=== PATIENT | female | born 1965 | race Caucasian/White ===

== ENCOUNTER 2016-10-15 17:47 | Emergency (ER) | payer OTHER ==
--- NOTE | 2016-10-15 20:25 | DIAGNOSTIC IMAGING REPORT ---
PROCEDURE: CT ABDOMEN/PELVIS W/O CONTRAST INDICATION: ABDOMINAL PAIN, bilateral flank pain, history of polycystic kidney disease TECHNIQUE: Axial CT images were obtained through the abdomen and pelvis without IV contrast. Coronal and sagittal reformations were created. COMPARISON: 12/10/2012 FINDINGS: Diffuse enlargement of both kidneys with innumerable bilateral cysts. The right kidney measures approximately 16.8 cm and the left kidney measures approximately 17.7 cm. These are relatively stable compared to the prior study. Multiple nonobstructing bilateral intrarenal calculi are present. Multiple hepatic cysts. Questionable subtle inflammation around the margin of the pancreas which remains normal in size and stable compared to the prior study. The pancreatic duct is visible but nondilated. Clear lung bases. Normal sized heart. No hiatal hernia. The unenhanced appearance of the gallbladder, adrenal glands, and spleen is normal. The abdominal aorta is normal in its course and caliber with minor atherosclerosis. There are no suspicious calcifications, retroperitoneal adenopathy or masses. The stomach, upper bowel loops, and mesentery are normal. Intact anterior abdominal wall. No free fluid or inflammation. Post hysterectomy. Mild sigmoid diverticulosis. The unenhanced appearance of the urinary bladder, pelvic vessels, and pelvic bowel loops is normal. Normal appendix. No suspicious calcifications, free pelvic fluid or mass. Intact osseous structures. IMPRESSION: 1. Stable bilateral polycystic kidney disease with bilateral nonobstructing intrarenal calcifications, stable. No evidence of hydronephrosis or ureteral calcification. 2. Post hysterectomy. 3. Polycystic liver disease. 4. Sigmoid diverticulosis. 5. Changes of very subtle peripancreatic inflammation consistent with mild pancreatitis. No evidence of significant retroperitoneal inflammation or fluid. 6. Discussed with Dr. Pearson in the emergency room. All CT scans at this facility use dose modulation, iterative reconstruction, and/or weight-based dosing when appropriate to reduce radiation dose to as low as reasonably achievable.
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
--- NOTE | 2016-10-15 20:42 | ED ORDER SUMMARY ---
..... Patient: VELASQUEZ ZAMOAR OrderSheet [facility] VisitID: [id number] [address] [place] [address] 51y, F Registration Date/Time: 10/15/2016 ORDER SHEET Weight: 58.9 kg (stated) Allergies: morphine GENERAL ORDERS: UA-Culture if indicated Urgent (17:57 10/15/2016 Thien HAYES) (Ack 17:59 Roro) (18:01 AMcQuoid ER Tech1) Bladder Scan (18:31 10/15/2016 Thien HAYES) (18:52 MCook R.N.) CBC w Diff Urgent (18:31 10/15/2016 Thien HAYES) (Ack 18:36 Roro) (18:52 MCook R.N.) CMP Urgent (18:10/15/2016 Thien HAYES) (Ack 18:36 Roro) (18:52 MCook R.N.) Amylase Urgent (18:31 10/15/2016 Thien HAYES) (Ack 18:36 Roro) (18:52 MCook R.N.) Lipase Urgent (18:31 10/15/2016 Thien HAYES) (Ack 18:36 Roro) (18:52 MCook R.N.) CT Abd/Pel wo Cont Urgent (19:36 10/15/2016 Thien HAYES) (Ack 19:45 AMcQuoid ER Tech1) (19:48 RFay) MEDICATION ORDERS: Clonidine PO 0.2 mg (NOW) (18:30 10/15/2016 Thien HAYES) (18:57 MCook R.N.) IV FLUIDS: Dilaudid IV 0.5 mg (HIGH ALERT MEDICATION, NOW) (18:30 10/15/2016 Thien HAYES) (18:56 MCook R.N.) Zofran IV 4 mg (NOW) (18:30 10/15/2016 Thien HAYES) (18:53 MCook R.N.) IV NS : initial bolus 500 mL (1000 mL/hr), then 125 mL/hr for 4h (NOW); Urgent (18:33 10/15/2016 Thien HAYES) (18:53 Fransisca Shetty) ORDER SHEET NOTES: [Electronically signed by Suly Nicolas R.N. (20:57 10/15/2016)] [Electronically signed by Ted Pearson MD (21:11 10/16/2016)] [Electronically locked/signed by Suly Nicolas R.N. (20:57 10/15/2016)]
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
--- NOTE | 2016-10-15 20:42 | ED ORDER SUMMARY ---
..... Patient: VELASQUEZ ZAMORA OrderSheet [facility] VisitID: [id number] [address] [place] [address] 51y, F Registration Date/Time: 10/15/2016 ORDER SHEET Weight: 58.9 kg (stated) Allergies: morphine GENERAL ORDERS: UA-Culture if indicated Urgent (17:57 10/15/2016 Thien HAYES) (Ack 17:59 Roro) (18:01 AMcQuoid ER Tech1) Bladder Scan (18:31 10/15/2016 Thien HAYES) (18:52 MCook R.N.) CBC w Diff Urgent (18:31 10/15/2016 Thien HAYES) (Ack 18:36 Roro) (18:52 MCook R.N.) CMP Urgent (18:10/15/2016 Thien HAYES) (Ack 18:36 Roro) (18:52 MCook R.N.) Amylase Urgent (18:31 10/15/2016 Thien HAYES) (Ack 18:36 Roro) (18:52 MCook R.N.) Lipase Urgent (18:31 10/15/2016 Thien HAYES) (Ack 18:36 Roro) (18:52 MCook R.N.) CT Abd/Pel wo Cont Urgent (19:36 10/15/2016 Thien HAYES) (Ack 19:45 AMcQuoid ER Tech1) (19:48 RFay) MEDICATION ORDERS: Clonidine PO 0.2 mg (NOW) (18:30 10/15/2016 Thien HAYES) (18:57 MCook R.N.) IV FLUIDS: Dilaudid IV 0.5 mg (HIGH ALERT MEDICATION, NOW) (18:30 10/15/2016 Thien HAYES) (18:56 MCook R.N.) Zofran IV 4 mg (NOW) (18:30 10/15/2016 Thien HAYES) (18:53 MCook R.N.) IV NS : initial bolus 500 mL (1000 mL/hr), then 125 mL/hr for 4h (NOW); Urgent (18:33 10/15/2016 Thien HAYES) (18:53 Fransisca Shetty) ORDER SHEET NOTES: [Electronically signed by Suly Nicolas R.N. (20:57 10/15/2016)] [Electronically signed by Ted Pearson MD (21:11 10/16/2016)] [Electronically locked/signed by Suly Nicolas R.N. (20:57 10/15/2016)]
--- NOTE | 2016-10-16 21:12 | ED MED RECONCILIATION SUMMARY ---
Patient: VELASQUEZ ZAMORA Medication Reconciliation Report [facility] VisitID: [id number] [address] [place] [address] 51y, F Registration Date/Time: 10/15/2016 Weight: 58.9 kg Height/Length: 62 in. BMI: 23.8 ALLERGIES: morphine The patient's Home Medications are listed below: CONTINUE TAKING THE FOLLOWING MEDICATIONS: Lisinopril Oral The source(s) of the original Home Medication information: Not obtained. The following Medications were given to the patient in the Emergency Department: IV NS IV Fluids bolus 500 mL over 1 hour(s), administered: 10/15/2016 6:53:00 PM Zofran [IVP] IVP 4 mg, administered: 10/15/2016 6:53:00 PM Dilaudid [IVP] IVP 0.5 mg, administered: 10/15/2016 6:56:00 PM Clonidine [PO] PO 0.2 mg, administered: 10/15/2016 6:57:00 PM The following Medications were prescribed to the patient: Ultram 50 mg tablets: take 1-2 orally every 6 hours as needed for pain. Dispense twenty (20). No refills. Substitution is permissible. -- Ted Pearson MD
--- NOTE | 2016-10-16 21:12 | ED MED RECONCILIATION SUMMARY ---
Patient: VELASQUEZ ZAMORA Medication Reconciliation Report [facility] VisitID: [id number] [address] [place] [address] 51y, F Registration Date/Time: 10/15/2016 Weight: 58.9 kg Height/Length: 62 in. BMI: 23.8 ALLERGIES: morphine The patient's Home Medications are listed below: CONTINUE TAKING THE FOLLOWING MEDICATIONS: Lisinopril Oral The source(s) of the original Home Medication information: Not obtained. The following Medications were given to the patient in the Emergency Department: IV NS IV Fluids bolus 500 mL over 1 hour(s), administered: 10/15/2016 6:53:00 PM Zofran [IVP] IVP 4 mg, administered: 10/15/2016 6:53:00 PM Dilaudid [IVP] IVP 0.5 mg, administered: 10/15/2016 6:56:00 PM Clonidine [PO] PO 0.2 mg, administered: 10/15/2016 6:57:00 PM The following Medications were prescribed to the patient: Ultram 50 mg tablets: take 1-2 orally every 6 hours as needed for pain. Dispense twenty (20). No refills. Substitution is permissible. -- Ted Pearson MD
--- NOTE | 2016-10-16 21:12 | ED MAR SUMMARY ---
..... Medication Administration Record [facility] [address] [place] [address] Patient: VELASQUEZ ZAMORA Visit ID: [id number] 51y, F Weight: 58.9 kg Height/Length: 62 in BMI: 23.8 ALLERGIES: morphine Given 18:53 10/15/2016 Hever Bruce R.N. Medication Administered: ZOFRAN [IVP] (ONDANSETRON HCL), Dose: 4 mg IVP over 2 minute(s), Site: #1 left AC. Medication Ordered: Zofran IV 4 mg (NOW). Start 18:53 10/15/2016 Hever Bruce R.N., Stop 20:51 10/15/2016 Suly Nicolas R.N. Medication Administered: IV NS (SALINE), Dose: IV Fluids, Bolus: 500 mL over 1 hour(s), Dispensed: 1000 mL bag, Site: #1 left AC. Medication Ordered: IV NS : initial bolus 500 mL (1000 mL/hr), then 125 mL/hr for 4h (NOW); Urgent. Given 18:56 10/15/2016 Hever Bruce R.N. Medication Administered: DILAUDID [IVP] (HYDROMORPHONE HCL PF), Dose: 0.5 mg IVP over 2 minute(s), Site: #1 left AC. Medication Ordered: Dilaudid IV 0.5 mg (HIGH ALERT MEDICATION, NOW). Given 18:57 10/15/2016 Hever Bruce R.N. Medication Administered: CLONIDINE [PO], Dose: 0.2 mg Tablets PO. Medication Ordered: Clonidine PO 0.2 mg (NOW).
--- NOTE | 2016-10-16 21:12 | ED MAR SUMMARY ---
..... Medication Administration Record [facility] [address] [place] [address] Patient: VELASQUEZ ZAMORA Visit ID: [id number] 51y, F Weight: 58.9 kg Height/Length: 62 in BMI: 23.8 ALLERGIES: morphine Given 18:53 10/15/2016 Hever Bruce R.N. Medication Administered: ZOFRAN [IVP] (ONDANSETRON HCL), Dose: 4 mg IVP over 2 minute(s), Site: #1 left AC. Medication Ordered: Zofran IV 4 mg (NOW). Start 18:53 10/15/2016 Hever Bruce R.N., Stop 20:51 10/15/2016 Suly Nicolas R.N. Medication Administered: IV NS (SALINE), Dose: IV Fluids, Bolus: 500 mL over 1 hour(s), Dispensed: 1000 mL bag, Site: #1 left AC. Medication Ordered: IV NS : initial bolus 500 mL (1000 mL/hr), then 125 mL/hr for 4h (NOW); Urgent. Given 18:56 10/15/2016 Hever Bruce R.N. Medication Administered: DILAUDID [IVP] (HYDROMORPHONE HCL PF), Dose: 0.5 mg IVP over 2 minute(s), Site: #1 left AC. Medication Ordered: Dilaudid IV 0.5 mg (HIGH ALERT MEDICATION, NOW). Given 18:57 10/15/2016 Hever Bruce R.N. Medication Administered: CLONIDINE [PO], Dose: 0.2 mg Tablets PO. Medication Ordered: Clonidine PO 0.2 mg (NOW).
--- NOTE | 2016-10-16 21:12 | ED DISCHARGE INSTRUCTIONS ---
Patient: VELASQUEZ ZAMORA General Instructions [facility] VisitID: [id number] [address] [place] [address] 51y, F Registration Date/Time: 10/15/2016 Pancreatitis. Renal insufficiency. Hypertension. INSTRUCTIONS No driving or operating machinery while taking medication. Drink plenty of fluids. Take clear liquids only until re-evaluated. Warnings: Further evaluation is necessary. GENERAL WARNINGS: Return or contact your physician immediately if your condition worsens or changes unexpectedly, if not improving as expected, or if other problems arise. Your Current Medications: CONTINUE TAKING THE FOLLOWING MEDICATIONS: Lisinopril Oral. Prescription Medications: Ultram 50 mg tablets: take 1-2 orally every 6 hours as needed for pain. Dispense twenty (20). No refills. Substitution is permissible. Understanding of the discharge instructions verbalized by patient. Follow-up with: Kassie Mackey PA-C, [facility], , [facility], [address] [place] [address] Follow up Monday in two days. Call for an appointment. ADDITIONAL INFORMATION Pancreatitis The pancreas is an organ in the left upper abdomen that secretes digestive juices into the stomach. Pancreatitis is an inflammation of the pancreas. This may occur for various causes including heavy alcohol use, gall stone blockage of the outflow duct from the pancreas, certain medicines and viral illness. Sometimes the cause of pancreatitis cannot be found. Moderate to severe illness requires being treated in the hospital. Milder attacks of pancreatitis can be treated at home. Home Care: 1) Absolutely NO ALCOHOL. 2) Rest in bed or sit up in a chair until you feel better. 3) Eat small more frequent meals rather than a few large meals each day. 4) Follow a high protein, high carbohydrate, low fat diet. 5) If you were given medicine for pain or vomiting, take it as prescribed. Follow Up with your doctor or as directed by our staff for further evaluation. Get Prompt Medical Attention if any of the following occur: -- Continued or worsening pain in the abdomen -- Repeated vomiting: unable to keep down liquids -- Dizziness, weakness or fainting -- Vomiting blood or blood in the stool (black or red color) -- Fever over 100.4 F (38.0 C) -- Severe muscle cramps or seizure -- Trouble breathing or fast breathing (over 25 breaths/minute) -- Jaundice (yellow color of the skin or eyes) Renal Insufficiency The role of the kidneys is to remove waste products and excess water from the body. When the kidneys do not function normally, waste products build up in the blood.The early stage of this process is called renal insufficiency . If renal insufficiency worsens it can lead to chronic renal failure. This allows excess water, waste and toxic substances to build up in the body. This can become a threat to life, requiring dialysis or a kidney transplant to stay alive. Diabetes is the leading causes of renal insufficiency. Other causes include high blood pressure, hardening of the arteries, lupus, inflammation of the blood vessels (vasculitis), prior viral and bacterial infections, and others. Certain lisa-ypy-swfqpzi pain medicines can cause renal failure when taken often over a long period of time. These include aspirin, ibuprofen (Advil, Motrin) and related anti-inflammatory medicines. Home Care: If you have diabetes, talk to your doctor about the quality of your blood sugar control.Ask about any changes needed to your diet or medicines. If you have high blood pressure: Take your blood pressure medicine. Take up a regular exercise program that you enjoy.Check with your doctor to be sure your planned exercise program is right for you. Reduce your salt (sodium) intake.Your doctor can tell you how much salt per day is safe for you. If you are overweight, talk to your doctor about a weight loss plan. If you smoke, you must quit.Smoking worsens kidney disease.Talk to your doctor about ways to help you quit.For more information, visit the following links: www.smokefree.gov/pubs/clearing_the_air.pdf www.smokefree.gov www.quitnet.com Talk to your doctor about any dietary restrictions advised. In general, it is advisable to limit protein, salt, potassium and phosphorus.Avoid excess fluids. Do not add salt at the table and avoid salty foods.A calcium supplement may be prescribed to protect your bones from osteoporosis. Avoid the following over the counter medicines, or consult your doctor before using: Aspirin and anti-inflammatory drugs such as ibuprofen (Advil, Motrin), naprosyn (Aleve); [Short term use of acetaminophen (Tylenol) for fever or pain is okay.] Laxatives and antacids containing magnesium or aluminum (Mylanta, Maalox) Avoid Fleet or phosphosoda enemas which contain phosphorus Certain stomach acid-blocking medicine such as cimetidine (Tagamet), ranitidine (Zantac) Decongestants containing pseudoephedrine (such as some forms of Sudafed or Actifed) Herbal supplements Follow Up with your doctor or as advised by our staff. Contact one of the following for more information. [place] [employer] [phone] www.aakp.org National Kidney Foundation www.kidney.org Return Promptly or contact your doctor if any of the following occurs: Nausea or vomiting Severe weakness, dizziness, fainting, drowsiness or confusion Chest pain or shortness of breath Unexpected weight gain or swelling in the legs, ankles or around the eyes Heart beating fast, slow or irregularly Decrease or loss in urine output Hypertension, Out Of Control (Established) Your blood pressure was unusually high today. This can occur as a result of missing doses of your blood pressure medicine. Some asthma inhalers, decongestants, diet pills, and street drugs such as cocaine and amphetamine can worsen hypertension. An increase in body weight, increase in salt intake, smoking, and caffeine are other causes. Emotional upset or acute pain can cause a sudden rapid rise in blood pressure which may return to normal after a period of rest. A normal blood pressure is less than 140/90. The first (top) number is the systolic pressure. The second (bottom) number is the diastolic pressure. Hypertension exists when either the top number is 140 or higher, OR the bottom number is 90 or higher on repeated measurements. Home Care: All patients with high blood pressure should do the following to lower their pressure. If you are on blood pressure medicines, then these methods may reduce or eliminate your need for medicines in the future. Begin a weight-loss program if you are overweight. Reduce your salt intake. Avoid high-salt foods (olives, pickles, smoked meats, salted potato chips, etc.). Do not add salt to your food at the table. Use only small amounts of salt when cooking. Begin an exercise program. Discuss with your doctor what type of exercise program would be best for you. It doesnt have to be difficult. Even brisk walking for 20 minutes3 times a week is a good form of exercise. Avoid medicines which contain heart stimulants. This includes many cold and sinus decongestant pills and sprays as well as diet pills. Check the warnings about hypertension on the label. Stimulants such as amphetamine or cocaine could be lethal for someone with hypertension. Never take these. Limit your caffeine intake or switch to decaf. Stop smoking. If you are a long-time smoker, this can be hard. Enroll in a stop-smoking program to improve your chance of success. Talk to your physician about ways to improve your chance of success. Learning how to handle stress better is an important part of any program to lower blood pressure. Learn about relaxation methods such as meditation, yoga, or biofeedback. If medicines were prescribed, take them exactly as directed. Missing doses may cause your blood pressure to get out of control. Consider buying an automatic blood pressure machine (available at many pharmacies). Use this to monitor your blood pressure and report to your doctor. Follow Up: Regular visits to your own doctor for blood pressure checks and medicine adjustment is an important part of your care. Make a follow-up appointment as directed by our staff. Get Prompt Medical Attention if any of the following occur: Chest, arm, shoulder, neck, or upper back pain Shortness of breath Severe headache Throbbing or rushing sound in the ears Nosebleed Extreme drowsiness, confusion, or fainting Dizziness or vertigo (dizziness with spinning sensation) Weakness of an arm or leg or one side of the face Difficulty with speech or vision Clear Liquid Diet Clear liquids are any liquid that you can see through as well as those that are very easy to digest. This is used while the body is recovering from irritation or infection of the stomach or intestinal tract. It may also be used before special procedures or surgery. This diet is to be used no more than three days. You may include the following items. Adults Adults should drink a total of 23 quarts of liquid per day. It may be easier to drink small frequent servings rather than a few large ones. Liquids can include: Fruit juices.Strained orange juice or lemonade (no pulp), apple, grape and cranberry juice, clear fruit drinks, sports drinks Beverages.Sport drinks, sodas, mineral water (plain or flavored), tea, black coffee, liquid gelatin (add twice the recommended amount of water) Soups.Clear broth, consomm, bouillon Desserts.Plain gelatin, popsicles, fruit juice bars Children Over 2 years old The following liquids are acceptable for children over age 2: Fruit juices.Strained orange juice or lemonade (no pulp), apple, grape and cranberry juice, clear fruit drinks Beverages. Sports drinks, sodas, mineral water (plain or flavored), tea, liquid gelatin (add twice the recommended amount of water) Soups. Clear broth, consomm, bouillon Desserts. Plain gelatin, popsicles, fruit juice bars Children under 2 years old Oral rehydration fluids such are available at drug stores and most grocery stores without a prescription. Tramadol Hydrochloride Oral tablet What is this medicine? TRAMADOL (TRA ma dole) is a pain reliever. It is used to treat moderate to severe pain in adults. How should I use this medicine? Take this medicine by mouth with a full glass of water. Follow the directions on the prescription label. If the medicine upsets your stomach, take it with food or milk. Do not take more medicine than you are told to take. Talk to your software design analyst regarding the use of this medicine in children. Special care may be needed. What side effects may I notice from receiving this medicine? Side effects that you should report to your doctor or health geriatric care manager as soon as possible: allergic reactions like skin rash, itching or hives, swelling of the face, lips, or tongue breathing difficulties, wheezing confusion itching light headedness or fainting spells redness, blistering, peeling or loosening of the skin, including inside the mouth seizures Side effects that usually do not require medical attention (report to your doctor or health geriatric care manager if they continue or are bothersome): constipation dizziness drowsiness headache nausea, vomiting What may interact with this medicine? Do not take this medicine with any of the following medications: MAOIs like Carbex, Eldepryl, Marplan, Nardil, and Parnate This medicine may also interact with the following medications: alcohol or medicines that contain alcohol antihistamines benzodiazepines bupropion carbamazepine or oxcarbazepine clozapine cyclobenzaprine digoxin furazolidone linezolid medicines for depression, anxiety, or psychotic disturbances medicines for migraine headache like almotriptan, eletriptan, frovatriptan, naratriptan, rizatriptan, sumatriptan, zolmitriptan medicines for pain like pentazocine, buprenorphine, butorphanol, meperidine, nalbuphine, and propoxyphene medicines for sleep muscle relaxants naltrexone phenobarbital phenothiazines like perphenazine, thioridazine, chlorpromazine, mesoridazine, fluphenazine, prochlorperazine, promazine, and trifluoperazine procarbazine warfarin What if I miss a dose? If you miss a dose, take it as soon as you can. If it is almost time for your next dose, take only that dose. Do not take double or extra doses. Where should I keep my medicine? Keep out of the reach of children. Store at room temperature between 15 and 30 degrees C (59 and 86 degrees F). Keep container tightly closed. Throw away any unused medicine after the expiration date. What should I tell my health care provider before I take this medicine? They need to know if you have any of these conditions: brain tumor depression drug abuse or addiction head injury if you frequently drink alcohol containing drinks kidney disease or trouble passing urine liver disease lung disease, asthma, or breathing problems seizures or epilepsy suicidal thoughts, plans, or attempt; a previous suicide attempt by you or a family member an unusual or allergic reaction to tramadol, codeine, other medicines, foods, dyes, or preservatives or trying to get breast-feeding What should I watch for while using this medicine? Tell your doctor or health geriatric care manager if your pain does not go away, if it gets worse, or if you have new or a different type of pain. You may develop tolerance to the medicine. Tolerance means that you will need a higher dose of the medicine for pain relief. Tolerance is normal and is expected if you take this medicine for a long time. Do not suddenly stop taking your medicine because you may develop a severe reaction. Your body becomes used to the medicine. This does NOT mean you are addicted. Addiction is a behavior related to getting and using a drug for a non-medical reason. If you have pain, you have a medical reason to take pain medicine. Your doctor will tell you how much medicine to take. If your doctor wants you to stop the medicine, the dose will be slowly lowered over time to avoid any side effects. You may get drowsy or dizzy. Do not drive, use machinery, or do anything that needs mental alertness until you know how this medicine affects you. Do not stand or sit up quickly, especially if you are an older patient. This reduces the risk of dizzy or fainting spells. Alcohol can increase or decrease the effects of this medicine. Avoid alcoholic drinks. You may have constipation. Try to have a bowel movement at least every 2 to 3 days. If you do not have a bowel movement for 3 days, call your doctor or health geriatric care manager. Your mouth may get dry. Chewing sugarless gum or sucking hard candy, and drinking plenty of water may help. Contact your doctor if the problem does not go away or is severe. You have been given the following additional information: Pancreatitis Renal Insufficiency Hypertension, Established, Out Of Control Diet, Clear Liquid Tramadol Hydrochloride Oral tablet No driving or operating machinery while taking medication. (Electronically signed by Ted Pearson MD 10/16/2016 21:11)
== END 2016-10-15 20:51 | disposition home or self-care (01) ==
LOC: ED SRH 17:47
DX: K85.90 Acute pancreatitis without necrosis or infection, unspecified (principal); N28.9 Disorder of kidney and ureter, unspecified; I10 Essential (primary) hypertension; Z79.899 Other long term (current) drug therapy; Z87.891 Personal history of nicotine dependence; Z88.5 Allergy status to narcotic agent; Q61.3 Polycystic kidney, unspecified
CPT/HCPCS: 90004; 90100; 92235; 92530; 95059

== ENCOUNTER 2016-10-19 10:44 | Emergency (ER) | payer OTHER ==
--- NOTE | 2016-10-19 12:02 | DIAGNOSTIC IMAGING REPORT ---
PROCEDURE: XR CHEST 1 VIEW INDICATION: CHEST PAIN TECHNIQUE: Single view chest. 1130 hours COMPARISON: 07/22/2013 FINDINGS: The cardiopulmonary contour and central vasculature are stable, within normal limits. The lungs are clear without focal consolidation, pleural effusion or pneumothorax. The osseous structures are intact. IMPRESSION: 1. No evidence of acute cardiopulmonary disease.
--- NOTE | 2016-10-19 16:11 | DIAGNOSTIC IMAGING REPORT ---
PROCEDURE: CT HEAD WITHOUT CONTRAST INDICATION: HEADACHE TECHNIQUE: Axial CT images were acquired through the head. Coronal and sagittal reformations were created. COMPARISON: Head CT dated 07/13/2013 FINDINGS: No intracranial hemorrhage or extraaxial fluid collections. Ventricles are normal in size, shape and position. There is no mass, mass effect or midline shift. The benitez-white matter differentiation is normal. There is no edema. The calvarium is intact. The paranasal sinuses and mastoid air cells are normally aerated. The extracranial soft tissues and orbits are normal. IMPRESSION: 1. No CT evidence of acute intracranial process. 2. Findings discussed with Dr. rodgers at 3:[address] All [address] scans at this facility use dose modulation, iterative reconstruction, and/or weight-based dosing when appropriate to reduce radiation dose to as low as reasonably achievable.
--- NOTE | 2016-10-19 18:05 | ED ORDER SUMMARY ---
..... Patient: VELASQUEZ ZAMORA OrderSheet [facility] VisitID: [id number] [place] [address] 51y, F Registration Date/Time: 10/19/2016 ORDER SHEET Weight: 58.9 kg (stated) Allergies: morphine GENERAL ORDERS: Chest 1V Urgent (11:15 10/19/2016 Sharad Ordaz) (Ack 11:29 AMcQuoid ER Tech1) (11:33 KKnebel R.N.) Cardiac Panel Stat (11:15 10/19/2016 Sharad Ordaz) (11:18 KKnebel R.N.) BNP Urgent (11:10/19/2016 Sharad Ordaz) (11:18 KKnebel R.N.) UA-Culture if indicated Urgent (11:15 10/19/2016 Sharad Ordaz) (Ack 11:29 AMcQuoid ER Tech1) (12:23 KKnebel R.N.) Urine Drug Screen Urgent (11:15 10/19/2016 Sharad Ordaz) (Ack 11:29 AMcQuoid ER Tech1) (12:23 KKnebel R.N.) EKG - ER Stat (11:15 10/19/2016 Sharad Ordaz) (11:20 KKnebel R.N.) CT Head wo Cont Urgent (15:38 10/19/2016 Sharad Ordaz) (Ack 15:45 AMcQuoid ER Tech1) (18:10 KKnebel R.N.) MEDICATION ORDERS: Acetaminophen PO 1,000 mg (NOW) (14:37 10/19/2016 Sharad Ordaz) (14:49 KKnebel R.N.) - (Magnesium Oxide 400 mg PO x 1 now) (15:29 10/19/2016 Sharad Ordaz) (16:53 KKnebel R.N.) Amlodipine PO 10 mg (NOW) (15:37 10/19/2016 Sharad Ordaz) (Ack 16:55 KKnebel R.N.) (17:54 KKnebel R.N.) IV FLUIDS: Labetalol IV 20 mg (HIGH ALERT MEDICATION, NOW) (11:13 10/19/2016 Sharad Ordaz) (11:19 Desiree R.N.) IV NS : initial bolus none -, then 200 mL/hr for X1 (NOW) (11:14 10/19/2016 Sharad Ordaz) (11:19 Desiree R.N.) Zofran IV 4 mg (NOW) (11:21 10/19/2016 Sharad Ordaz) (11:33 Desiree R.N.) Demerol IV 25 mg (HIGH ALERT MEDICATION, NOW) (14:37 10/19/2016 Sharad Ordaz) (14:49 Desiree R.N.) Demerol IV 25 mg (HIGH ALERT MEDICATION, NOW) (15:38 10/19/2016 Sharad Ordaz) (16:54 Desiree Zamora.N.) Zofran IV 4 mg (NOW) (18:02 10/19/2016 Sharad Ordaz) (18:14 Desiree R.N.) ORDER SHEET NOTES: [Electronically signed by Marce Ash R.N. (21:22 10/19/2016)] [Electronically signed by Richar Grijalva Dr. (21:33 10/19/2016)] [Electronically locked/signed by Marce Ash R.N. (21:22 10/19/2016)]
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
--- NOTE | 2016-10-19 18:05 | ED ORDER SUMMARY ---
..... Patient: VELASQUEZ ZAMORA OrderSheet [facility] VisitID: [id number] [place] [address] 51y, F Registration Date/Time: 10/19/2016 ORDER SHEET Weight: 58.9 kg (stated) Allergies: morphine GENERAL ORDERS: Chest 1V Urgent (11:15 10/19/2016 Sharad Ordaz) (Ack 11:29 AMcQuoid ER Tech1) (11:33 KKnebel R.N.) Cardiac Panel Stat (11:15 10/19/2016 Sharad Ordaz) (11:18 KKnebel R.N.) BNP Urgent (11:10/19/2016 Sharad Ordaz) (11:18 KKnebel R.N.) UA-Culture if indicated Urgent (11:15 10/19/2016 Sharad Ordaz) (Ack 11:29 AMcQuoid ER Tech1) (12:23 KKnebel R.N.) Urine Drug Screen Urgent (11:15 10/19/2016 Sharad Ordaz) (Ack 11:29 AMcQuoid ER Tech1) (12:23 KKnebel R.N.) EKG - ER Stat (11:15 10/19/2016 Sharad Ordaz) (11:20 KKnebel R.N.) CT Head wo Cont Urgent (15:38 10/19/2016 Sharad Ordaz) (Ack 15:45 AMcQuoid ER Tech1) (18:10 KKnebel R.N.) MEDICATION ORDERS: Acetaminophen PO 1,000 mg (NOW) (14:37 10/19/2016 Sharad Ordaz) (14:49 KKnebel R.N.) - (Magnesium Oxide 400 mg PO x 1 now) (15:29 10/19/2016 Sharad Ordaz) (16:53 KKnebel R.N.) Amlodipine PO 10 mg (NOW) (15:37 10/19/2016 Sharad Ordaz) (Ack 16:55 KKnebel R.N.) (17:54 KKnebel R.N.) IV FLUIDS: Labetalol IV 20 mg (HIGH ALERT MEDICATION, NOW) (11:13 10/19/2016 Sharad Ordaz) (11:19 Desiree R.N.) IV NS : initial bolus none -, then 200 mL/hr for X1 (NOW) (11:14 10/19/2016 Sharad Ordaz) (11:19 Desiree R.N.) Zofran IV 4 mg (NOW) (11:21 10/19/2016 Sharad Ordaz) (11:33 Desiree R.N.) Demerol IV 25 mg (HIGH ALERT MEDICATION, NOW) (14:37 10/19/2016 Sharad Ordaz) (14:49 Desiree R.N.) Demerol IV 25 mg (HIGH ALERT MEDICATION, NOW) (15:38 10/19/2016 Sharad Ordaz) (16:54 Desiree Zamora.N.) Zofran IV 4 mg (NOW) (18:02 10/19/2016 Sharad Ordaz) (18:14 Desiree R.N.) ORDER SHEET NOTES: [Electronically signed by Marce Ash R.N. (21:22 10/19/2016)] [Electronically signed by Richar Grijalva Dr. (21:33 10/19/2016)] [Electronically locked/signed by Marce Ash R.N. (21:22 10/19/2016)]
--- NOTE | 2016-10-19 21:33 | ED MAR SUMMARY ---
..... Medication Administration Record [facility] [address] [place] [address] Patient: VELASQUEZ ZAMORA Visit ID: [id number] 51y, F Weight: 58.9 kg Height/Length: 62 in BMI: 23.8 ALLERGIES: morphine Start 11:09 10/19/2016 Marce Ash R.N., Stop 16:00 10/19/2016 Marce Ash R.N. Medication Administered: IV NS (SALINE), Dose: IV Fluids over 5 hour(s), Rate: 200 mL/hr, Dispensed: 1000 mL bag, Site: #1 left AC. Medication Ordered: IV NS : initial bolus none -, then 200 mL/hr for X1 (NOW). Given 11:10/19/2016 Marce Ash R.N. Medication Administered: ZOFRAN [IVP] (ONDANSETRON HCL), Dose: 4 mg IVP over 2 minute(s), Site: #1 left AC. Medication Ordered: Zofran IV 4 mg (NOW). Given 11:10/19/2016 Marce Ash R.N. Medication Administered: LABETALOL [IVP], Dose: 20 mg IVP over 4 minute(s), Site: #1 left AC. Medication Ordered: Labetalol IV 20 mg (HIGH ALERT MEDICATION, NOW). Given 14:49 10/19/2016 Marce Ash R.N. Medication Administered: DEMEROL [IVP] (MEPERIDINE HCL), Dose: 25 mg IVP over 2 minute(s), Site: #1 left AC. Medication Ordered: Demerol IV 25 mg (HIGH ALERT MEDICATION, NOW). Given 14:49 10/19/2016 Marce Ash R.N. Medication Administered: ACETAMINOPHEN [PO] (APAP), Dose: 1000 mg Tablets PO. Medication Ordered: Acetaminophen PO 1,000 mg (NOW). Given 16:53 10/19/2016 Marce Ash R.N. Medication Administered: MAGNESIUM HYDROXIDE [PO], Dose: 10 mL Tablets PO. Medication Ordered: - (Magnesium Oxide 400 mg PO x 1 now). Given 16:54 10/19/2016 Marce Ash R.N. Medication Administered: DEMEROL [IVP] (MEPERIDINE HCL), Dose: 25 mg IVP over 2 minute(s), Site: #1 left AC. Medication Ordered: Demerol IV 25 mg (HIGH ALERT MEDICATION, NOW). Given 17:15 10/19/2016 Marce Ash R.N. Medication Administered: AMLODIPINE [PO], Dose: 10 mg Tablets PO. Medication Ordered: Amlodipine PO 10 mg (NOW). Given 18:14 10/19/2016 Marce Ash R.NJarrett Medication Administered: ZOFRAN [IVP] (ONDANSETRON HCL), Dose: 4 mg IVP over 2 minute(s), Site: #1 left AC. Medication Ordered: Zofran IV 4 mg (NOW).
--- NOTE | 2016-10-19 21:33 | ED MAR SUMMARY ---
..... Medication Administration Record [facility] [address] [place] [address] Patient: VELASQUEZ ZAMORA Visit ID: [id number] 51y, F Weight: 58.9 kg Height/Length: 62 in BMI: 23.8 ALLERGIES: morphine Start 11:09 10/19/2016 Marce Ash R.N., Stop 16:00 10/19/2016 Marce Ash R.N. Medication Administered: IV NS (SALINE), Dose: IV Fluids over 5 hour(s), Rate: 200 mL/hr, Dispensed: 1000 mL bag, Site: #1 left AC. Medication Ordered: IV NS : initial bolus none -, then 200 mL/hr for X1 (NOW). Given 11:10/19/2016 Marce Ash R.N. Medication Administered: ZOFRAN [IVP] (ONDANSETRON HCL), Dose: 4 mg IVP over 2 minute(s), Site: #1 left AC. Medication Ordered: Zofran IV 4 mg (NOW). Given 11:10/19/2016 Marce Ash R.N. Medication Administered: LABETALOL [IVP], Dose: 20 mg IVP over 4 minute(s), Site: #1 left AC. Medication Ordered: Labetalol IV 20 mg (HIGH ALERT MEDICATION, NOW). Given 14:49 10/19/2016 Marce Ash R.N. Medication Administered: DEMEROL [IVP] (MEPERIDINE HCL), Dose: 25 mg IVP over 2 minute(s), Site: #1 left AC. Medication Ordered: Demerol IV 25 mg (HIGH ALERT MEDICATION, NOW). Given 14:49 10/19/2016 Marce Ash R.N. Medication Administered: ACETAMINOPHEN [PO] (APAP), Dose: 1000 mg Tablets PO. Medication Ordered: Acetaminophen PO 1,000 mg (NOW). Given 16:53 10/19/2016 Marce Ash R.N. Medication Administered: MAGNESIUM HYDROXIDE [PO], Dose: 10 mL Tablets PO. Medication Ordered: - (Magnesium Oxide 400 mg PO x 1 now). Given 16:54 10/19/2016 Marce Ash R.N. Medication Administered: DEMEROL [IVP] (MEPERIDINE HCL), Dose: 25 mg IVP over 2 minute(s), Site: #1 left AC. Medication Ordered: Demerol IV 25 mg (HIGH ALERT MEDICATION, NOW). Given 17:15 10/19/2016 Marce Ash R.N. Medication Administered: AMLODIPINE [PO], Dose: 10 mg Tablets PO. Medication Ordered: Amlodipine PO 10 mg (NOW). Given 18:14 10/19/2016 Marce Ash R.NJarrett Medication Administered: ZOFRAN [IVP] (ONDANSETRON HCL), Dose: 4 mg IVP over 2 minute(s), Site: #1 left AC. Medication Ordered: Zofran IV 4 mg (NOW).
--- NOTE | 2016-10-19 21:33 | ED MED RECONCILIATION SUMMARY ---
Patient: VELASQUEZ ZAMORA Medication Reconciliation Report [facility] VisitID: [id number] [address] [place] [address] 51y, F Registration Date/Time: 10/19/2016 Weight: 58.9 kg Height/Length: 62 in. BMI: 23.8 ALLERGIES: morphine The patient's Home Medications are listed below: THE FOLLOWING MEDICATIONS NEED TO BE RECONCILED: Lisinopril Oral (40 mg) 1 tablet, daily Ultram Oral The source(s) of the original Home Medication information: Not obtained. The following Medications were given to the patient in the Emergency Department: IV NS IV Fluids bolus 0, then 200 mL/hr, administered: 10/19/2016 11:09:00 AM Labetalol [IVP] IVP 20 mg, administered: 10/19/2016 11:19:00 AM Zofran [IVP] IVP 4 mg, administered: 10/19/2016 11:09:00 AM Demerol [IVP] IVP 25 mg, administered: 10/19/2016 2:49:00 PM Acetaminophen [PO] PO 1000 mg, administered: 10/19/2016 2:49:00 PM Magnesium Hydroxide [PO] PO 10 mL, administered: 10/19/2016 4:53:00 PM Demerol [IVP] IVP 25 mg, administered: 10/19/2016 4:54:00 PM Amlodipine [PO] PO 10 mg, administered: 10/19/2016 5:15:00 PM Zofran [IVP] IVP 4 mg, administered: 10/19/2016 6:14:00 PM The following Medications were prescribed to the patient: Zofran (orally disintegrating tablets) 4 mg: take 1 orally every 6 hours as needed for nausea and vomiting. Dispense ten (10). No refill. Substitution is permissible. -- Richar Grijalva Dr. Amlodipine 10 mg: take 1 orally every 24 hours. Dispense fifteen (15). No refills. -- Richar Grijalva Dr.
--- NOTE | 2016-10-19 21:33 | ED DISCHARGE INSTRUCTIONS ---
Patient: VELASQUEZ ZAMORA General Instructions [facility] VisitID: [id number] [place] [address] 51y, F Registration Date/Time: 10/19/2016 Uncontrolled essential hypertension with hypertensive crisis. Mild chronic renal failure. INSTRUCTIONS Drink plenty of fluids Follow a low salt diet. Prescription Medications: Zofran (orally disintegrating tablets) 4 mg: take 1 orally every 6 hours as needed for nausea and vomiting. Dispense ten (10). No refill. Substitution is permissible. Amlodipine 10 mg: take 1 orally every 24 hours. Dispense fifteen (15). No refills. Follow-up: Follow up with your doctor in about two days. Call for an appointment. Blood pressure screening was not performed during this visit because the patient has an active diagnosis of hypertension. ADDITIONAL INFORMATION Chronic Renal Failure The role of the kidneys is to remove waste products and excess water from the blood. When the kidneys do not function normally and waste products begin to build up in the blood, this is called renal insufficiency. When it is advanced, it is called chronic renal failure or end-stage renal disease.Chronic renal failure allows excess water, waste and toxic substances to build up in the body. This can eventually become life-threatening, requiring dialysis or a kidney transplant to stay alive. Diabetes is the leading causes of chronic renal failure. Other causes include high blood pressure, hardening of the arteries (atherosclerosis), lupus, inflammation of the blood vessels (vasculitis), prior viral and bacterial infections, and others. Certain dzsj-vgy-cyvnyeh pain medicines can cause renal failure when taken often over a long period of time. These include aspirin, ibuprofen (Advil, Motrin) and related anti-inflammatory medicines. Home Care: If you have diabetes, talk to your doctor about the quality of your blood sugar control and any adjustments needed to your diet. If you have high blood pressure: Take prescribed medicine to lower your blood pressure to normal (130/80 mm Hg). Take up a regular exercise program that you enjoy.Check with your doctor to be sure your planned exercise program is right for you. Reduce your salt (sodium) intake.Your doctor can tell you how much salt per day is safe for you. If you are overweight, talk to your doctor about a weight loss plan. If you smoke, you must quit. Smoking worsens kidney disease.Talk to your doctor about ways to help you quit. For more information, visit the following links: www.smokefree.gov/pubs/clearing_the_air.pdf www.smokefree.gov www.quitnet.com All patients with chronic renal failure need to follow a special diet. Be sure you understand yours. In general, you will need to restrict protein, salt, potassium and phosphorus.You also need to limit fluid intake.A calcium supplement will be prescribed to protect your bones from osteoporosis. Avoid the following over the counter medicines, or consult your doctor before using: Aspirin and anti-inflammatory drugs such as ibuprofen (Advil, Motrin), naprosyn (Aleve); [Short term use of acetaminophen (Tylenol) for fever or pain is okay.] Laxatives and antacids containing magnesium or aluminum (Mylanta, Maalox) Fleet or phosphosoda enemas containing phosphorus Certain stomach acid-blocking medicine such as cimetidine (Tagamet), ranitidine (Zantac) Decongestants containing pseudoephedrine (such as some forms of Sudafed or Actifed) Herbal supplements Follow Up with your doctor or as advised by our staff. Contact one of the following for more information. Citizen Of [place] Association of Kidney Patients www.aakp.org National Kidney Foundation www.kidney.org [NOTE: If an X-ray or EKG (cardiogram) was made, another specialist will review it. You will be notified of any new findings that may affect your care.] Return Promptly or contact your doctor if any of the following occurs: Nausea or vomiting Severe weakness, dizziness, fainting, drowsiness or confusion Chest pain or shortness of breath Unexpected weight gain or swelling in the legs, ankles or around the eyes Heart beating fast, slow or irregularly Decrease or absent urine output Hypertension, Out Of Control (Established) Your blood pressure was unusually high today. This can occur as a result of missing doses of your blood pressure medicine. Some asthma inhalers, decongestants, diet pills, and street drugs such as cocaine and amphetamine can worsen hypertension. An increase in body weight, increase in salt intake, smoking, and caffeine are other causes. Emotional upset or acute pain can cause a sudden rapid rise in blood pressure which may return to normal after a period of rest. A normal blood pressure is less than 140/90. The first (top) number is the systolic pressure. The second (bottom) number is the diastolic pressure. Hypertension exists when either the top number is 140 or higher, OR the bottom number is 90 or higher on repeated measurements. Home Care: All patients with high blood pressure should do the following to lower their pressure. If you are on blood pressure medicines, then these methods may reduce or eliminate your need for medicines in the future. Begin a weight-loss program if you are overweight. Reduce your salt intake. Avoid high-salt foods (olives, pickles, smoked meats, salted potato chips, etc.). Do not add salt to your food at the table. Use only small amounts of salt when cooking. Begin an exercise program. Discuss with your doctor what type of exercise program would be best for you. It doesnt have to be difficult. Even brisk walking for 20 minutes3 times a week is a good form of exercise. Avoid medicines which contain heart stimulants. This includes many cold and sinus decongestant pills and sprays as well as diet pills. Check the warnings about hypertension on the label. Stimulants such as amphetamine or cocaine could be lethal for someone with hypertension. Never take these. Limit your caffeine intake or switch to decaf. Stop smoking. If you are a long-time smoker, this can be hard. Enroll in a stop-smoking program to improve your chance of success. Talk to your physician about ways to improve your chance of success. Learning how to handle stress better is an important part of any program to lower blood pressure. Learn about relaxation methods such as meditation, yoga, or biofeedback. If medicines were prescribed, take them exactly as directed. Missing doses may cause your blood pressure to get out of control. Consider buying an automatic blood pressure machine (available at many pharmacies). Use this to monitor your blood pressure and report to your doctor. Follow Up: Regular visits to your own doctor for blood pressure checks and medicine adjustment is an important part of your care. Make a follow-up appointment as directed by our staff. Get Prompt Medical Attention if any of the following occur: Chest, arm, shoulder, neck, or upper back pain Shortness of breath Severe headache Throbbing or rushing sound in the ears Nosebleed Extreme drowsiness, confusion, or fainting Dizziness or vertigo (dizziness with spinning sensation) Weakness of an arm or leg or one side of the face Difficulty with speech or vision Low-Salt Diet (2 Grams/Day) This diet eliminates foods that are high in salt and restricts the amount of salt that you cook with. It is most often used for patients with high blood pressure, edema (fluid retention), kidney, liver, and heart disease. Table salt contains the mineral sodium. The body needs sodium to work normally. But too much sodium can make your health problems worse. Your healthcare provider is recommending a low-salt (also called low-sodium) diet for you. Your total daily allowance of salt (sodium) is 2 grams. This equals 2,000 milligrams (mg). It is less than 1 teaspoon of table salt. This means you can have only about 700 mg of sodium at each meal. When you cook, limit the salt you use. And if you can avoid using salt, even better. Do not add salt at the table. So, throw away the saltshaker! When shopping, read the package labels. Salt is often called sodium on the label. Choose foods that are Salt-Free, Low Salt, or Very Low Salt. Note that foods with Reduced Salt may notlower your salt intake enough. Beverages OK: Tea, coffee, carbonated beverages, juices AVOID: Flavored international coffees, electrolyte replacement drinks, sports beverages Bread & Cereals OK: All regular bread, rolls, cereals, cakes; low-salt crackers, matzoh crackers AVOID: Salted crackers, pretzels, popcorn; romansh toast, pancakes, muffins Fruits & Desserts OK: Ice cream, frozen yogurt, juice bars, gelatin (Jell-O), cookies and pies, sugar, honey, jelly, hard candy AVOID: Most pies, cakes and cookies prepared or processed with salt, instant pudding Meats OK: All fresh meat, fish, poultry, low-salt tuna AVOID: Smoked, pickled, brine-cured, or salted meats or fish. Thisincludes atkinson, chipped beef, corned beef, hot dogs, luncheon meats, ham, kosher meats, salt pork, sausage, canned tuna, salted codfish, smokedsalmon, roberts, sardines, or anchovies. Dairy OK: Milk, chocolate milk, hot chocolate mix; eggs, Low Salt cheeses, yogurt, egg substitute AVOID: Processed cheese, cheese spreads, Roquefort, Camembert, and cottage cheese, buttermilk, instant breakfast drink Beans, Potatoes & Pasta OK: Dry beans, split peas, lentils, potatoes, rice, macaroni, noodles, spaghetti without added salt AVOID: Potato chips, tortilla chips, and similar products Soups OK: Low-salt soups and broths made with allowed foods AVOID: Bouillon cubes, soups with smoked or salted meats, regular soup and broth Vegetables OK: Most are okay; low-salt tomato and vegetable juices AVOID: Sauerkraut and other brine-soaked vegetables, pickles and other pickled vegetables, tomato juice, olives Seasoning & Spices OK: Most seasonings are okay. Good substitutes for salt include: fresh herb blends, Tabasco, lemon, garlic, marti, vinegar, dry mustard, parsley, cilantro, horseradish, tomato paste, regular margarine, mayonnaise, butter, cream cheese, vegetable oil, cream, low-salt salad dressing and gravy AVOID: Regular ketchup, relishes, pickles, soy sauce, teriyaki sauce, Worcestershire sauce, BBQ sauce, tartar sauce, meat tenderizer, chili sauce, regular gravy, regular salad dressing Ondansetron Oral disintegrating tablet What is this medicine? ONDANSETRON (on JAZLYN se naveen) is used to treat nausea and vomiting caused by chemotherapy. It is also used to prevent or treat nausea and vomiting after surgery. How should I use this medicine? These tablets are made to dissolve in the mouth. Do not try to push the tablet through the foil backing. With dry hands, peel away the foil backing and gently remove the tablet. Place the tablet in the mouth and allow it to dissolve, then swallow. While you may take these tablets with water, it is not necessary to do so. Talk to your sprinkler inspector regarding the use of this medicine in children. Special care may be needed. What side effects may I notice from receiving this medicine? Side effects that you should report to your doctor or health pet care assistant as soon as possible: allergic reactions like skin rash, itching or hives, swelling of the face, lips, or tongue breathing problems dizziness fast or irregular heartbeat feeling faint or lightheaded, falls fever and chills swelling of the hands and feet tightness in the chest Side effects that usually do not require medical attention (report to your doctor or health pet care assistant if they continue or are bothersome): constipation or diarrhea headache What may interact with this medicine? Do not take this medicine with any of the following medications: -apomorphine -cisapride -dofetilide -dronedarone -pimozide -thioridazine -ziprasidone This medicine may also interact with the following medications: -carbamazepine -phenytoin -rifampicin -tramadol -other medicines that prolong the QT interval (cause an abnormal heart rhythm) What if I miss a dose? If you miss a dose, take it as soon as you can. If it is almost time for your next dose, take only that dose. Do not take double or extra doses. Where should I keep my medicine? Keep out of the reach of children. Store between 2 and 30 degrees C (36 and 86 degrees F). Throw away any unused medicine after the expiration date. What should I tell my health care provider before I take this medicine? They need to know if you have any of these conditions: heart disease history of irregular heartbeat liver disease low levels of magnesium or potassium in the blood an unusual or allergic reaction to ondansetron, granisetron, other medicines, foods, dyes, or preservatives or trying to get breast-feeding What should I watch for while using this medicine? Check with your doctor or health pet care assistant as soon as you can if you have any sign of an allergic reaction. Amlodipine Besylate Oral tablet What is this medicine? AMLODIPINE (am KELVIN di peen) is a calcium-channel keagan. It affects the amount of calcium found in your heart and muscle cells. This relaxes your blood vessels, which can reduce the amount of work the heart has to do. This medicine is used to lower high blood pressure. It is also used to prevent chest pain. How should I use this medicine? Take this medicine by mouth with a glass of water. Follow the directions on the prescription label. Take your medicine at regular intervals. Do not take more medicine than directed. Talk to your sprinkler inspector regarding the use of this medicine in children. Special care may be needed. This medicine has been used in children as young as 6. Persons over 65 years old may have a stronger reaction to this medicine and need smaller doses. What side effects may I notice from receiving this medicine? Side effects that you should report to your doctor or health pet care assistant as soon as possible: allergic reactions like skin rash, itching or hives, swelling of the face, lips, or tongue breathing problems changes in vision or hearing chest pain fast, irregular heartbeat swelling of legs or ankles Side effects that usually do not require medical attention (report to your doctor or health pet care assistant if they continue or are bothersome): dry mouth facial flushing nausea, vomiting stomach gas, pain tired, weak trouble sleeping What may interact with this medicine? herbal or dietary supplements local or general anesthetics medicines for high blood pressure medicines for prostate problems rifampin What if I miss a dose? If you miss a dose, take it as soon as you can. If it is almost time for your next dose, take only that dose. Do not take double or extra doses. Where should I keep my medicine? Keep out of the reach of children. Store at room temperature between 59 and 86 degrees F (15 and 30 degrees C). Protect from light. Keep container tightly closed. Throw away any unused medicine after the expiration date. What should I tell my health care provider before I take this medicine? They need to know if you have any of these conditions: heart problems like heart failure or aortic stenosis liver disease an unusual or allergic reaction to amlodipine, other medicines, foods, dyes, or preservatives or trying to get breast-feeding What should I watch for while using this medicine? Visit your doctor or health pet care assistant for regular check ups. Check your blood pressure and pulse rate regularly. Ask your health pet care assistant what your blood pressure and pulse rate should be, and when you should contact him or her. This medicine may make you feel confused, dizzy or lightheaded. Do not drive, use machinery, or do anything that needs mental alertness until you know how this medicine affects you. To reduce the risk of dizzy or fainting spells, do not sit or stand up quickly, especially if you are an older patient. Avoid alcoholic drinks; they can make you more dizzy. Do not suddenly stop taking amlodipine. Ask your doctor or health pet care assistant how you can gradually reduce the dose. You have been given the following additional information: Chronic Renal Failure Hypertension, Established, Out Of Control Diet, Low Salt (2Gm) Ondansetron Oral disintegrating tablet Amlodipine Besylate Oral tablet (Electronically signed by Richar Grijalva Dr. 10/19/2016 21:33)
--- NOTE | 2016-10-19 21:33 | ED MED RECONCILIATION SUMMARY ---
Patient: VELASQUEZ ZAMORA Medication Reconciliation Report [facility] VisitID: [id number] [place] [address] 51y, F Registration Date/Time: 10/19/2016 Weight: 58.9 kg Height/Length: 62 in. BMI: 23.8 ALLERGIES: morphine The patient's Home Medications are listed below: THE FOLLOWING MEDICATIONS NEED TO BE RECONCILED: Lisinopril Oral (40 mg) 1 tablet, daily Ultram Oral The source(s) of the original Home Medication information: Not obtained. The following Medications were given to the patient in the Emergency Department: IV NS IV Fluids bolus 0, then 200 mL/hr, administered: 10/19/2016 11:09:00 AM Labetalol [IVP] IVP 20 mg, administered: 10/19/2016 11:19:00 AM Zofran [IVP] IVP 4 mg, administered: 10/19/2016 11:09:00 AM Demerol [IVP] IVP 25 mg, administered: 10/19/2016 2:49:00 PM Acetaminophen [PO] PO 1000 mg, administered: 10/19/2016 2:49:00 PM Magnesium Hydroxide [PO] PO 10 mL, administered: 10/19/2016 4:53:00 PM Demerol [IVP] IVP 25 mg, administered: 10/19/2016 4:54:00 PM Amlodipine [PO] PO 10 mg, administered: 10/19/2016 5:15:00 PM Zofran [IVP] IVP 4 mg, administered: 10/19/2016 6:14:00 PM The following Medications were prescribed to the patient: Zofran (orally disintegrating tablets) 4 mg: take 1 orally every 6 hours as needed for nausea and vomiting. Dispense ten (10). No refill. Substitution is permissible. -- Richar Grijalva Dr. Amlodipine 10 mg: take 1 orally every 24 hours. Dispense fifteen (15). No refills. -- Richar Grijalva Dr.
--- NOTE | 2016-10-19 21:33 | ED DISCHARGE INSTRUCTIONS ---
Patient: VELASQUEZ ZAMORA General Instructions [facility] VisitID: [id number] [place] [address] 51y, F Registration Date/Time: 10/19/2016 Uncontrolled essential hypertension with hypertensive crisis. Mild chronic renal failure. INSTRUCTIONS Drink plenty of fluids Follow a low salt diet. Prescription Medications: Zofran (orally disintegrating tablets) 4 mg: take 1 orally every 6 hours as needed for nausea and vomiting. Dispense ten (10). No refill. Substitution is permissible. Amlodipine 10 mg: take 1 orally every 24 hours. Dispense fifteen (15). No refills. Follow-up: Follow up with your doctor in about two days. Call for an appointment. Blood pressure screening was not performed during this visit because the patient has an active diagnosis of hypertension. ADDITIONAL INFORMATION Chronic Renal Failure The role of the kidneys is to remove waste products and excess water from the blood. When the kidneys do not function normally and waste products begin to build up in the blood, this is called renal insufficiency. When it is advanced, it is called chronic renal failure or end-stage renal disease.Chronic renal failure allows excess water, waste and toxic substances to build up in the body. This can eventually become life-threatening, requiring dialysis or a kidney transplant to stay alive. Diabetes is the leading causes of chronic renal failure. Other causes include high blood pressure, hardening of the arteries (atherosclerosis), lupus, inflammation of the blood vessels (vasculitis), prior viral and bacterial infections, and others. Certain gbek-kyf-wqnyvxi pain medicines can cause renal failure when taken often over a long period of time. These include aspirin, ibuprofen (Advil, Motrin) and related anti-inflammatory medicines. Home Care: If you have diabetes, talk to your doctor about the quality of your blood sugar control and any adjustments needed to your diet. If you have high blood pressure: Take prescribed medicine to lower your blood pressure to normal (130/80 mm Hg). Take up a regular exercise program that you enjoy.Check with your doctor to be sure your planned exercise program is right for you. Reduce your salt (sodium) intake.Your doctor can tell you how much salt per day is safe for you. If you are overweight, talk to your doctor about a weight loss plan. If you smoke, you must quit. Smoking worsens kidney disease.Talk to your doctor about ways to help you quit. For more information, visit the following links: www.smokefree.gov/pubs/clearing_the_air.pdf www.smokefree.gov www.quitnet.com All patients with chronic renal failure need to follow a special diet. Be sure you understand yours. In general, you will need to restrict protein, salt, potassium and phosphorus.You also need to limit fluid intake.A calcium supplement will be prescribed to protect your bones from osteoporosis. Avoid the following over the counter medicines, or consult your doctor before using: Aspirin and anti-inflammatory drugs such as ibuprofen (Advil, Motrin), naprosyn (Aleve); [Short term use of acetaminophen (Tylenol) for fever or pain is okay.] Laxatives and antacids containing magnesium or aluminum (Mylanta, Maalox) Fleet or phosphosoda enemas containing phosphorus Certain stomach acid-blocking medicine such as cimetidine (Tagamet), ranitidine (Zantac) Decongestants containing pseudoephedrine (such as some forms of Sudafed or Actifed) Herbal supplements Follow Up with your doctor or as advised by our staff. Contact one of the following for more information. [employer] www.aakp.org National Kidney Foundation www.kidney.org [NOTE: If an X-ray or EKG (cardiogram) was made, another specialist will review it. You will be notified of any new findings that may affect your care.] Return Promptly or contact your doctor if any of the following occurs: Nausea or vomiting Severe weakness, dizziness, fainting, drowsiness or confusion Chest pain or shortness of breath Unexpected weight gain or swelling in the legs, ankles or around the eyes Heart beating fast, slow or irregularly Decrease or absent urine output Hypertension, Out Of Control (Established) Your blood pressure was unusually high today. This can occur as a result of missing doses of your blood pressure medicine. Some asthma inhalers, decongestants, diet pills, and street drugs such as cocaine and amphetamine can worsen hypertension. An increase in body weight, increase in salt intake, smoking, and caffeine are other causes. Emotional upset or acute pain can cause a sudden rapid rise in blood pressure which may return to normal after a period of rest. A normal blood pressure is less than 140/90. The first (top) number is the systolic pressure. The second (bottom) number is the diastolic pressure. Hypertension exists when either the top number is 140 or higher, OR the bottom number is 90 or higher on repeated measurements. Home Care: All patients with high blood pressure should do the following to lower their pressure. If you are on blood pressure medicines, then these methods may reduce or eliminate your need for medicines in the future. Begin a weight-loss program if you are overweight. Reduce your salt intake. Avoid high-salt foods (olives, pickles, smoked meats, salted potato chips, etc.). Do not add salt to your food at the table. Use only small amounts of salt when cooking. Begin an exercise program. Discuss with your doctor what type of exercise program would be best for you. It doesnt have to be difficult. Even brisk walking for 20 minutes3 times a week is a good form of exercise. Avoid medicines which contain heart stimulants. This includes many cold and sinus decongestant pills and sprays as well as diet pills. Check the warnings about hypertension on the label. Stimulants such as amphetamine or cocaine could be lethal for someone with hypertension. Never take these. Limit your caffeine intake or switch to decaf. Stop smoking. If you are a long-time smoker, this can be hard. Enroll in a stop-smoking program to improve your chance of success. Talk to your physician about ways to improve your chance of success. Learning how to handle stress better is an important part of any program to lower blood pressure. Learn about relaxation methods such as meditation, yoga, or biofeedback. If medicines were prescribed, take them exactly as directed. Missing doses may cause your blood pressure to get out of control. Consider buying an automatic blood pressure machine (available at many pharmacies). Use this to monitor your blood pressure and report to your doctor. Follow Up: Regular visits to your own doctor for blood pressure checks and medicine adjustment is an important part of your care. Make a follow-up appointment as directed by our staff. Get Prompt Medical Attention if any of the following occur: Chest, arm, shoulder, neck, or upper back pain Shortness of breath Severe headache Throbbing or rushing sound in the ears Nosebleed Extreme drowsiness, confusion, or fainting Dizziness or vertigo (dizziness with spinning sensation) Weakness of an arm or leg or one side of the face Difficulty with speech or vision Low-Salt Diet (2 Grams/Day) This diet eliminates foods that are high in salt and restricts the amount of salt that you cook with. It is most often used for patients with high blood pressure, edema (fluid retention), kidney, liver, and heart disease. Table salt contains the mineral sodium. The body needs sodium to work normally. But too much sodium can make your health problems worse. Your healthcare provider is recommending a low-salt (also called low-sodium) diet for you. Your total daily allowance of salt (sodium) is 2 grams. This equals 2,000 milligrams (mg). It is less than 1 teaspoon of table salt. This means you can have only about 700 mg of sodium at each meal. When you cook, limit the salt you use. And if you can avoid using salt, even better. Do not add salt at the table. So, throw away the saltshaker! When shopping, read the package labels. Salt is often called sodium on the label. Choose foods that are Salt-Free, Low Salt, or Very Low Salt. Note that foods with Reduced Salt may notlower your salt intake enough. Beverages OK: Tea, coffee, carbonated beverages, juices AVOID: Flavored international coffees, electrolyte replacement drinks, sports beverages Bread & Cereals OK: All regular bread, rolls, cereals, cakes; low-salt crackers, matzoh crackers AVOID: Salted crackers, pretzels, popcorn; tamazight toast, pancakes, muffins Fruits & Desserts OK: Ice cream, frozen yogurt, juice bars, gelatin (Jell-O), cookies and pies, sugar, honey, jelly, hard candy AVOID: Most pies, cakes and cookies prepared or processed with salt, instant pudding Meats OK: All fresh meat, fish, poultry, low-salt tuna AVOID: Smoked, pickled, brine-cured, or salted meats or fish. Thisincludes atkinson, chipped beef, corned beef, hot dogs, luncheon meats, ham, kosher meats, salt pork, sausage, canned tuna, salted codfish, smokedsalmon, roberts, sardines, or anchovies. Dairy OK: Milk, chocolate milk, hot chocolate mix; eggs, Low Salt cheeses, yogurt, egg substitute AVOID: Processed cheese, cheese spreads, Roquefort, Camembert, and cottage cheese, buttermilk, instant breakfast drink Beans, Potatoes & Pasta OK: Dry beans, split peas, lentils, potatoes, rice, macaroni, noodles, spaghetti without added salt AVOID: Potato chips, tortilla chips, and similar products Soups OK: Low-salt soups and broths made with allowed foods AVOID: Bouillon cubes, soups with smoked or salted meats, regular soup and broth Vegetables OK: Most are okay; low-salt tomato and vegetable juices AVOID: Sauerkraut and other brine-soaked vegetables, pickles and other pickled vegetables, tomato juice, olives Seasoning & Spices OK: Most seasonings are okay. Good substitutes for salt include: fresh herb blends, Tabasco, lemon, garlic, marti, vinegar, dry mustard, parsley, cilantro, horseradish, tomato paste, regular margarine, mayonnaise, butter, cream cheese, vegetable oil, cream, low-salt salad dressing and gravy AVOID: Regular ketchup, relishes, pickles, soy sauce, teriyaki sauce, Worcestershire sauce, BBQ sauce, tartar sauce, meat tenderizer, chili sauce, regular gravy, regular salad dressing Ondansetron Oral disintegrating tablet What is this medicine? ONDANSETRON (on JAZLYN se naveen) is used to treat nausea and vomiting caused by chemotherapy. It is also used to prevent or treat nausea and vomiting after surgery. How should I use this medicine? These tablets are made to dissolve in the mouth. Do not try to push the tablet through the foil backing. With dry hands, peel away the foil backing and gently remove the tablet. Place the tablet in the mouth and allow it to dissolve, then swallow. While you may take these tablets with water, it is not necessary to do so. Talk to your account support associate regarding the use of this medicine in children. Special care may be needed. What side effects may I notice from receiving this medicine? Side effects that you should report to your doctor or health child care lead teacher as soon as possible: allergic reactions like skin rash, itching or hives, swelling of the face, lips, or tongue breathing problems dizziness fast or irregular heartbeat feeling faint or lightheaded, falls fever and chills swelling of the hands and feet tightness in the chest Side effects that usually do not require medical attention (report to your doctor or health child care lead teacher if they continue or are bothersome): constipation or diarrhea headache What may interact with this medicine? Do not take this medicine with any of the following medications: -apomorphine -cisapride -dofetilide -dronedarone -pimozide -thioridazine -ziprasidone This medicine may also interact with the following medications: -carbamazepine -phenytoin -rifampicin -tramadol -other medicines that prolong the QT interval (cause an abnormal heart rhythm) What if I miss a dose? If you miss a dose, take it as soon as you can. If it is almost time for your next dose, take only that dose. Do not take double or extra doses. Where should I keep my medicine? Keep out of the reach of children. Store between 2 and 30 degrees C (36 and 86 degrees F). Throw away any unused medicine after the expiration date. What should I tell my health care provider before I take this medicine? They need to know if you have any of these conditions: heart disease history of irregular heartbeat liver disease low levels of magnesium or potassium in the blood an unusual or allergic reaction to ondansetron, granisetron, other medicines, foods, dyes, or preservatives or trying to get breast-feeding What should I watch for while using this medicine? Check with your doctor or health child care lead teacher as soon as you can if you have any sign of an allergic reaction. Amlodipine Besylate Oral tablet What is this medicine? AMLODIPINE (am KELVIN di peen) is a calcium-channel keagan. It affects the amount of calcium found in your heart and muscle cells. This relaxes your blood vessels, which can reduce the amount of work the heart has to do. This medicine is used to lower high blood pressure. It is also used to prevent chest pain. How should I use this medicine? Take this medicine by mouth with a glass of water. Follow the directions on the prescription label. Take your medicine at regular intervals. Do not take more medicine than directed. Talk to your account support associate regarding the use of this medicine in children. Special care may be needed. This medicine has been used in children as young as 6. Persons over 65 years old may have a stronger reaction to this medicine and need smaller doses. What side effects may I notice from receiving this medicine? Side effects that you should report to your doctor or health child care lead teacher as soon as possible: allergic reactions like skin rash, itching or hives, swelling of the face, lips, or tongue breathing problems changes in vision or hearing chest pain fast, irregular heartbeat swelling of legs or ankles Side effects that usually do not require medical attention (report to your doctor or health child care lead teacher if they continue or are bothersome): dry mouth facial flushing nausea, vomiting stomach gas, pain tired, weak trouble sleeping What may interact with this medicine? herbal or dietary supplements local or general anesthetics medicines for high blood pressure medicines for prostate problems rifampin What if I miss a dose? If you miss a dose, take it as soon as you can. If it is almost time for your next dose, take only that dose. Do not take double or extra doses. Where should I keep my medicine? Keep out of the reach of children. Store at room temperature between 59 and 86 degrees F (15 and 30 degrees C). Protect from light. Keep container tightly closed. Throw away any unused medicine after the expiration date. What should I tell my health care provider before I take this medicine? They need to know if you have any of these conditions: heart problems like heart failure or aortic stenosis liver disease an unusual or allergic reaction to amlodipine, other medicines, foods, dyes, or preservatives or trying to get breast-feeding What should I watch for while using this medicine? Visit your doctor or health child care lead teacher for regular check ups. Check your blood pressure and pulse rate regularly. Ask your health child care lead teacher what your blood pressure and pulse rate should be, and when you should contact him or her. This medicine may make you feel confused, dizzy or lightheaded. Do not drive, use machinery, or do anything that needs mental alertness until you know how this medicine affects you. To reduce the risk of dizzy or fainting spells, do not sit or stand up quickly, especially if you are an older patient. Avoid alcoholic drinks; they can make you more dizzy. Do not suddenly stop taking amlodipine. Ask your doctor or health child care lead teacher how you can gradually reduce the dose. You have been given the following additional information: Chronic Renal Failure Hypertension, Established, Out Of Control Diet, Low Salt (2Gm) Ondansetron Oral disintegrating tablet Amlodipine Besylate Oral tablet (Electronically signed by Richar Grijalva Dr. 10/19/2016 21:33)
== END 2016-10-19 18:20 | disposition home or self-care (01) ==
LOC: ED SRH 10:44
DX: I16.9 Hypertensive crisis, unspecified (principal); I12.9 Hypertensive chronic kidney disease with stage 1 through stage 4 chronic kidney disease, or unspecified chronic kidney disease; N18.9 Chronic kidney disease, unspecified; Z79.899 Other long term (current) drug therapy; Z88.5 Allergy status to narcotic agent
CPT/HCPCS: 90004; 90100; 90616; 91320; 92610; 92720; 92760; 92761; 92762; 92763; 92764; 92765; 92766; 92767; 95059